=== PATIENT | female | born 1960 | race Caucasian/White ===

== ENCOUNTER 2018-02-12 09:04 | Inpatient (IN) | payer BC ==
[~2018-02-12] VITALS: Ht 157.5 cm; Wt 41.7 kg
[~2018-02-12 09:04] MED LIST: BIOTIN2500 MCG PO; BUPIVACAINE 7.5MG/ML /DEXTROSE 82.5MG/ML 2 ML AMP INJ ONE; CALTRATE PLUS1 EACH PO; COSAMIN ASU CA1 EACH PO; CYCLAFEM1 EAC1 PO; EVENING PRIMRO500 MG PO; MULTI-VITAMIN1 EACH PO; PROBIOTIC ACID1 EACH PO; ROPIVACAINE 246.25 MG, EPINEPHRINE HCL 1:1000 0.5 MG, CLONIDINE HCL 0.08 MG, KETOROLAC ... INJ ONE; SYNTHROID75 MCG PO; TOPROL XL25 MG PO; ZOCOR20 MG PO
[2018-02-12] MEDS ORDERED: DEXAMETHASONE SOD PHOS 10 MG/1 ML VIAL ONE (09:16)
[2018-02-12] MEDS ORDERED: GABAPENTIN 300 MG CAP ONE (09:16)
[2018-02-12] MEDS ORDERED: CELECOXIB 200 MG CAP ONE (09:16)
[2018-02-12] MEDS ORDERED: CEFAZOLIN SOD 2 GM/D5W 50ML 50 ML IV ONE (09:16)
[2018-02-12] MEDS ORDERED: MUPIROCIN 2% OINT 22 GM TUBE ONE (10:28)
[2018-02-12] MEDS ORDERED: TRANEXAMIC ACID 1,000 MG/10 ML ML ONE (10:28)
[2018-02-12] MEDS ORDERED: BACITRACIN 50,000 UNIT VIAL ONE (10:29)
[2018-02-12] MEDS ORDERED: HYDROCODONE/APAP 5MG-325MG TAB PO PRN (12:45)
[2018-02-12] MEDS ORDERED: DOCUSATE SODIUM 100 MG CAP PO PRN (12:45)
[2018-02-12] MEDS ORDERED: KETOROLAC TROMETHAMINE 30 MG/ML VIAL IV PRN (12:45)
[2018-02-12] MEDS ORDERED: HYDROCODONE/APAP 7.5MG-325MG 1 EA TAB PO PRN (12:45)
[2018-02-12] MEDS ORDERED: ONDANSETRON HCL INJ 2 MG/ML VIAL IV PRN (12:45)
[2018-02-12] MEDS ORDERED: ACETAMINOPHEN 650 MG SUPP PR PRN (12:45)
[2018-02-12] MEDS ORDERED: PROMETHAZINE HCL (IM) 25 MG/ML VIAL IM PRN (12:45)
[2018-02-12] MEDS ORDERED: DIPHENHYDRAMINE HCL INJ 50 MG/ML VIAL IM/IV PRN (12:45)
--- NOTE | 2018-02-12 13:04 | Diagnostic Imaging Report ---
PROCEDURE:X-RAY PELVIS, AP VIEW COMPARISON:None. INDICATIONS:STATUS POST LEFT HIP SURGERY FINDINGS: See conclusion CONCLUSION: Post surgical changes related to total left hip are placement with intact and appropriately positioned acetabular cup and femoral stem components. No evidence of hardware loosening or periprosthetic displaced fracture. Adjacent subcutaneous gas compatible with recent surgery. Dictated by: Sukhjinder Blandon M.D. on 02/12/2018 at 13:08 Electronically approved by: Sukhjinder Blandon M.D. on 02/12/2018 at 13:08
[2018-02-12 14:16] VITALS: BP 98/57
[2018-02-12 16:00] VITALS: BP 124/67
[2018-02-12] MEDS ORDERED: CELECOXIB 100 MG CAP PO SCH (17:00)
[2018-02-12] MEDS ORDERED: GLYCOPYRROLATE INJ 1MG/ 5 ML SYR ONE (17:17)
[2018-02-12] MEDS ORDERED: NEOSTIGMINE 5 MG/5ML SYR ONE (17:17)
[2018-02-12] MEDS ORDERED: DEXAMETHASONE SOD PHOS INJ 4 MG/ML VIAL ONE (17:17)
[2018-02-12] MEDS ORDERED: PROPOFOL IV EMULSION 10 MG/ML 20 ML VIAL ONE (17:17)
[2018-02-12] MEDS ORDERED: SEVOFLURANE INHAL SOLN 250 ML PEN BTL ONE (17:17)
[2018-02-12] MEDS ORDERED: KETOROLAC TROMETHAMINE 30 MG/ML VIAL ONE (17:17)
[2018-02-12] MEDS ORDERED: EPHEDRINE SULFATE INJ 50 MG/10 ML SYR ONE (17:17)
[2018-02-12] MEDS ORDERED: ONDANSETRON HCL INJ 2 MG/ML VIAL ONE (17:17)
[2018-02-12] MEDS ORDERED: ROCURONIUM BROMIDE 10 MG/ML 5ML VIAL ONE (17:17)
[2018-02-12] MEDS ORDERED: LIDOCAINE HCL 2% LOCAL INJ 5 ML SDV VIAL INJ ONE (17:17)
[2018-02-12] MEDS ORDERED: MIDAZOLAM HCL 2 MG/2 ML VIAL ONE (17:40)
[2018-02-12] MEDS ORDERED: FENTANYL CITRATE/PF 100MCG/2 ML INJ ONE (17:40)
[2018-02-12] MEDS ORDERED: MORPHINE SULFATE INJ 10 MG/ML ONE (17:40)
[2018-02-12] MEDS: CELECOXIB 200 MG CAP PO SCH (18:00)
[2018-02-12] MEDS: ASPIRIN 325 MG TAB PO SCH (18:00)
[2018-02-12] MEDS: CEFAZOLIN SOD 1 GM/D5W 50ML 50 ML IV SCH (18:00)
[2018-02-12] MEDS: SODIUM CHLORIDE 0.9% 1000ML 1,000 ML IV SCH ×2 (18:00→22:32)
[2018-02-12] MEDS: ACETAMINOPHEN 1000 MG/100 ML IV SCH (18:30)
[2018-02-12 20:00] VITALS: BP 124/67
[2018-02-12] MEDS ORDERED: ZOLPIDEM TARTRATE 5 MG TAB PO PRN (21:00)
[2018-02-13] VITALS: BP 99/57
[2018-02-13] MEDS: ACETAMINOPHEN 1000 MG/100 ML IV SCH ×3 (01:23→11:58)
[2018-02-13] MEDS: CEFAZOLIN SOD 1 GM/D5W 50ML 50 ML IV SCH ×2 (01:49→10:20)
[2018-02-13 04:00] VITALS: BP 97/57
[2018-02-13] MEDS: LEVOTHYROXINE SODIUM 75 MCG TAB PO SCH ×2 (06:12→09:00)
[2018-02-13 07:09] LABS: HEMOGLOBIN 9.7 g/dL (12.0-16.0)
[2018-02-13 08:00] VITALS: BP 94/57
[2018-02-13] MEDS: SODIUM CHLORIDE 0.9% 1000ML 1,000 ML IV SCH (08:32)
[2018-02-13] MEDS ORDERED: [UNRECOGNIZED DRUG - OTHER] PO SCH ×2 (09:00)
[2018-02-13] MEDS ORDERED: OYST-CAL-D 500MG TABLET PO SCH (09:00)
[2018-02-13] MEDS ORDERED: NON-FORMULARY MEDICATION (Biotin 5,000 MCG) PO SCH ×2 (09:00)
[2018-02-13] MEDS ORDERED: NON-FORMULARY MEDICATION (Calcium Carb/Vit D3/Minerals (Caltrate Plus Tablet) 1 TAB) PO SCH (09:00)
[2018-02-13] MEDS ORDERED: METOPROLOL SUCCINATE 25 MG TAB XL PO SCH (09:00)
[2018-02-13] MEDS ORDERED: EVENING PRIMROSE OIL 500 MG PO SCH ×2 (09:00)
[2018-02-13] MEDS ORDERED: LACTOBACILLUS ACIDOPHILUS CAPSULE PO SCH (09:00)
[2018-02-13] MEDS ORDERED: MULTIVITAMINS/MINERALS TAB PO SCH (09:00)
[2018-02-13] MEDS ORDERED: ASPIRIN325 MG PO (09:55)
[2018-02-13 10:07] VITALS: BP 94/57
[2018-02-13] MEDS: CELECOXIB 200 MG CAP PO SCH (10:07)
[2018-02-13] MEDS: ASPIRIN 325 MG TAB PO SCH (10:07)
--- NOTE | 2018-02-13 10:53 | Operative Report ---
DATE OF PROCEDURE: February 12, 2018 HEAD ANIMAL TRAINER: Kuldip Javier PA-C The patient was brought to the operating room for induction of anesthesia. Throughout this case, my PA's assistance was necessary for retraction of soft tissue and positioning of the extremity. This allows for efficient and technically successful execution of the operation and is considered medically necessary. PREOPERATIVE DIAGNOSIS: Osteoarthritis, left hip. POSTOPERATIVE DIAGNOSIS: Osteoarthritis, left hip. PROCEDURE: Left total hip arthroplasty. INDICATIONS: The patient is a 57-year-old lady with severe arthritic changes in her left hip. She has failed conservative management and we plan on a left total hip replacement. The risks and benefits have been discussed. She states she understands and wishes to proceed. DESCRIPTION OF PROCEDURE: The patient was brought to the operating room and placed under general anesthetic. She received prophylactic antibiotics and tranexamic acid in the holding area. She declined a spinal. She was positioned in the right lateral decubitus position. Her left hip was prepped and draped in a sterile manner. A preoperative time out was performed. A mini-incision posterior approach was made to the left hip. Hemostasis was obtained with electrocautery. A Charnley self-retaining retractor was placed. Care was taken to avoid injury to the sciatic nerve. The posterior capsule was exposed. Further hemostasis was obtained with electrocautery. The capsule and short external rotators were released. The hip was dislocated. An oscillating saw was used to resect the femoral head. Complete loss of articular cartilage and flattening of the femoral head was noted. Acetabular retractors were placed. The labrum was already gone. The true floor of the acetabulum was established with a 46-mm reamer. The socket was then sequentially reamed up to 53 mm. A Scar Biomet osseous T 54 mm outer diameter socket was seated. Fixation was augmented with 2 cancellous screws placed into the ilium. A highly cross link polyethylene liner was then seated into place. The hip had been thoroughly irrigated with a shower-tip pulsatile lavage on multiple occasions during this portion of the case. A portion of a 100 mL premixed pericapsular JEANNE injection was placed around the surrounding tissue. The socket was packed with a moistly soaked lap sponge and attention was directed towards the proximal femur. A box cutting osteotome and taper pin reamer were used to establish entry to the femoral canal. The Taperloc broaches were impacted. A #12 stem had good canal fill and rotational stability for trial reductions. A standard 36-mm neck provided appropriate stability and mormonism of limb length. The trial implants were removed. The hip was further irrigated with a shower-tip pulsatile lavage. The actual implants were seated and a final reduction was performed. A standard 36 mm ceramic head was used. The remainder of the JEANNE injection was placed into the soft tissue. The posterior capsule was carefully closed with interrupted #2 Ethibond. The tensor fascia and gluteal fascia were closed with #2 Ethibond. The skin was closed with subcuticular Vicryl, Mastisol and Steri-Strips. A sterile bandage was applied. She was returned to the supine position. She was extubated and transported to the recovery room in stable condition. Blood loss was approximately 50 mL. All needle and sponge counts were correct. Job#: [id number] TONEY
[2018-02-13 12:29] VITALS: BP 100/71
[2018-02-13] MEDS ORDERED: ACETAMINOPHEN 1000 MG/100 ML IV PRN (12:45)
[2018-02-13] MEDS ORDERED: SIMVASTATIN 20 MG TAB PO SCH (21:00)
[2018-02-13] MEDS ORDERED: NORETHINDRONE ETHINYL ESTRAD PO SCH ×2 (21:00)
== END 2018-02-13 14:32 | disposition home health service (06) | DRG 470 ==
LOC: OR 09:04 → PACU V 12:35 → MED/SURG 13:41
PROVIDERS: ADMIT Specialist; ATTEND Specialist
PROC: 0SRB0J9 Replacement of Left Hip Joint with Synthetic Substitute, Cemented, Open Approach (ICD-10-PCS; principal; 2018-02-12 11:14)
DX: M16.12 Unilateral primary osteoarthritis, left hip (principal); Z88.2 Allergy status to sulfonamides; Z88.8 Allergy status to other drugs, medicaments and biological substances; E03.9 Hypothyroidism, unspecified; E78.00 Pure hypercholesterolemia, unspecified; I10 Essential (primary) hypertension; D64.9 Anemia, unspecified
CPT/HCPCS: 36415; 72170; 81025; 85014; 85018; 86850; 86900; 86920; J0171; J1100; J1885; J2001; J2250; J2270; J2405; J2795; J7030

== ENCOUNTER 2018-04-12 09:56 | Outpatient (RCR) | payer BC ==
[~2018-04-12 09:56] MED LIST changes: +ASPIRIN325 MG PO; -BUPIVACAINE 7.5MG/ML /DEXTROSE 82.5MG/ML 2 ML AMP INJ ONE; -ROPIVACAINE 246.25 MG, EPINEPHRINE HCL 1:1000 0.5 MG, CLONIDINE HCL 0.08 MG, KETOROLAC ... INJ ONE
== END 2018-04-13 ==
LOC: PT 09:56
PROVIDERS: ATTEND Specialist
DX: Z96.642 Presence of left artificial hip joint (principal); Z47.1 Aftercare following joint replacement surgery; R26.2 Difficulty in walking, not elsewhere classified; M62.81 Muscle weakness (generalized)

== ENCOUNTER 2018-05-11 08:54 | Outpatient (RCR) | payer BC | END 2018-05-13 | LOC: PT 08:54 | PROVIDERS: ATTEND Specialist | DX: Z96.642 Presence of left artificial hip joint (principal); Z47.1 Aftercare following joint replacement surgery; M62.81 Muscle weakness (generalized); R26.2 Difficulty in walking, not elsewhere classified ==

== ENCOUNTER 2018-06-06 09:01 | Outpatient (RCR) | payer BC | END 2018-06-13 | LOC: PT 09:01 | PROVIDERS: ATTEND Family Medicine | DX: Z96.642 Presence of left artificial hip joint (principal); Z47.1 Aftercare following joint replacement surgery; M62.81 Muscle weakness (generalized); R26.2 Difficulty in walking, not elsewhere classified ==

== ENCOUNTER 2018-06-12 07:58 | Outpatient (RCR) | payer BC | END 2018-06-13 | LOC: PT 07:58 | PROVIDERS: ATTEND Specialist | DX: Z96.642 Presence of left artificial hip joint (principal); Z47.1 Aftercare following joint replacement surgery; M62.81 Muscle weakness (generalized); R26.2 Difficulty in walking, not elsewhere classified ==

== ENCOUNTER 2018-07-03 08:00 | Outpatient (RCR) | payer BC | END 2018-07-13 | LOC: PT 08:00 | PROVIDERS: ATTEND Family Medicine | DX: M94.261 Chondromalacia, right knee (principal); M22.2X1 Patellofemoral disorders, right knee; M25.561 Pain in right knee; M25.661 Stiffness of right knee, not elsewhere classified; M62.81 Muscle weakness (generalized) ==

== ENCOUNTER → 2023-02-10 | Day surgery (SDC) | payer BC, OTHER ==
[~2023-02-10] MED LIST changes: +EPHEDRINE SULFATE INJ 50 MG/ML VIAL ONE; +GLYCOPYRROLATE INJ 0.2 MG/ML VIAL ONE; +LIDOCAINE HCL 2% LOCAL INJ 5 ML SDV VIAL INJ ONE; +METOCLOPRAMIDE HCL 10 MG/2ML VIAL ONE; +MIDAZOLAM HCL 2 MG/2 ML VIAL ONE; +POVIDONE IODINE 0.05% 0.05 % ML PO ONE; +PROPOFOL IV EMULSION 0 ML IV ONE; +PROPOFOL IV EMULSION 10 MG/ML 20 ML VIAL ONE
[2023-02-10 16:20] VITALS: BP 124/84; PULSE 82; RESP 16; O2SAT 98
[2023-02-16 06:13] LABS: ENDOMYSIAL ANTIBODIES, IGA Negative (Negative)
== END | disposition home or self-care (01) ==
LOC: OR 13:05
PROVIDERS: ATTEND Internal Medicine Gastroenterology
DX: K29.50 Unspecified chronic gastritis without bleeding (principal); Z86.010 Personal history of colon polyps; K20.90 Esophagitis, unspecified without bleeding; K63.89 Other specified diseases of intestine; K31.89 Other diseases of stomach and duodenum; K29.60 Other gastritis without bleeding; K59.09 Other constipation; K59.00 Constipation, unspecified; Z71.3 Dietary counseling and surveillance; R63.4 Abnormal weight loss; E78.5 Hyperlipidemia, unspecified; E03.9 Hypothyroidism, unspecified; I44.0 Atrioventricular block, first degree; Z88.3 Allergy status to other anti-infective agents; Z88.2 Allergy status to sulfonamides; Z01.810 Encounter for preprocedural cardiovascular examination; Z79.899 Other long term (current) drug therapy
CPT/HCPCS: 43239; 45380; 82784; 83516; 86256; 93005; C9113; J2001; J2250; J2704; J2765; 45378

== ENCOUNTER 2023-09-08 18:40 | Inpatient (IN) | payer OTHER ==
[2023-09-07 21:30] VITALS: PULSE 81; RESP 16; O2SAT 98
[~2023-09-08] VITALS: Ht 157.5 cm; Wt 34.9 kg
[~2023-09-08 18:40] MED LIST changes: -EPHEDRINE SULFATE INJ 50 MG/ML VIAL ONE; -GLYCOPYRROLATE INJ 0.2 MG/ML VIAL ONE; -LIDOCAINE HCL 2% LOCAL INJ 5 ML SDV VIAL INJ ONE; +LINZESS290 MCG PO; -METOCLOPRAMIDE HCL 10 MG/2ML VIAL ONE; -MIDAZOLAM HCL 2 MG/2 ML VIAL ONE; +NAPROSYN500 MG PO; +ONDANSETRON ODT4 MG PO; +PANTOPRAZOLE SO40 MG PO; -POVIDONE IODINE 0.05% 0.05 % ML PO ONE; -PROPOFOL IV EMULSION 0 ML IV ONE; -PROPOFOL IV EMULSION 10 MG/ML 20 ML VIAL ONE
[2023-09-08 19:14] LABS: BASOPHILS % 0.2 % (0.0-1.0); EOSINOPHILS # (AUTO) 0.1 (0.0-0.4); EOSINOPHILS % 1.7 % (0.0-6.0); HEMATOCRIT 32.5 % (34.2-44.1); HEMOGLOBIN 11.2 g/dL (12.0-16.0); LYMPHOCYTES # (AUTO) 0.4 (1.0-3.2); LYMPHOCYTES % 6.9 % (18.0-39.1); MEAN CORPUSCULAR HEMOGLOBIN 28.6 pg (28-32); MEAN CORPUSCULAR HGB CONC 34.5 g/dL (31-35); MEAN CORPUSCULAR VOLUME 83.1 fL (81-99); MONOCYTES # (AUTO) 0.4 (0.2-0.8); NEUTROPHILS # (AUTO) 4.9 (2.1-6.9); PLATELET COUNT 241 x10e3/uL (140-360); RED BLOOD COUNT 3.91 x10e6/uL (3.6-5.1)
[2023-09-08 19:33] LABS: ALBUMIN 3.6 g/dL (3.5-5.0); ALBUMIN/GLOBULIN RATIO 1.3 (0.8-2.0); ANION GAP 14.9 mmol/L (8-16); BILIRUBIN,TOTAL 0.6 mg/dL (0.2-1.2); CREATININE, SERUM 0.62 mg/dL (0.57-1.11); POTASSIUM 3.9 mmol/L (3.5-5.1); TOTAL PROTEIN 6.3 g/dL (6.5-8.1)
[2023-09-08] MEDS ORDERED: ONDANSETRON HCL INJ 2MG/ML 2ML 2 MG/ML VIAL IV PRN (20:00)
[2023-09-08 21:52] VITALS: BP_SYST 120; BP_SYST 146; BP_DIAS 78; BP_DIAS 79; PULSE 73; RESP 17; TEMP 97.7; O2SAT 100
[2023-09-08] MEDS: SODIUM CHLORIDE 0.9% 1000ML 1,000 ML IV SCH (22:27)
[2023-09-08] MEDS ORDERED: PRAMIPEXOLE D0.25 MG PO (23:12)
[2023-09-08] MEDS ORDERED: TRULANCE3 MG (23:12)
[2023-09-08] MEDS ORDERED: CHLORDIAZEPOXI1 EACH PO (23:12)
[2023-09-09] VITALS (11 sets, daily range): BP systolic 91–142; BP diastolic 56–87; PULSE 66–78; RESP 16–19; TEMP 97.2–98.2; O2SAT 100
[2023-09-09] MEDS ORDERED: ONDANSETRON HCL 4 MG ORAL DISINTEGRATING TAB PO PRN (04:30)
[2023-09-09 06:15] LABS: BASOPHILS % 0.4 % (0.0-1.0); EOSINOPHILS # (AUTO) 0.1 (0.0-0.4); EOSINOPHILS % 2.4 % (0.0-6.0); HEMATOCRIT 30.3 % (34.2-44.1); HEMOGLOBIN 10.4 g/dL (12.0-16.0); LYMPHOCYTES # (AUTO) 0.4 (1.0-3.2); LYMPHOCYTES % 7.9 % (18.0-39.1); MEAN CORPUSCULAR HEMOGLOBIN 27.9 pg (28-32); MEAN CORPUSCULAR HGB CONC 34.3 g/dL (31-35); MEAN CORPUSCULAR VOLUME 81.2 fL (81-99); MONOCYTES # (AUTO) 0.2 (0.2-0.8); MONOCYTES % 4.9 % (4.4-11.3); NEUTROPHILS # (AUTO) 3.9 (2.1-6.9); NEUTROPHILS % 83.8 % (38.7-80.0); PLATELET COUNT 253 x10e3/uL (140-360); RED BLOOD COUNT 3.73 x10e6/uL (3.6-5.1); RED CELL DISTRIBUTION WIDTH 14.1 % (11.7-14.4); WHITE BLOOD COUNT 4.68 x10e3/uL (4.8-10.8)
[2023-09-09 06:39] LABS: ALBUMIN 3.1 g/dL (3.5-5.0); ALBUMIN/GLOBULIN RATIO 1.3 (0.8-2.0); ANION GAP 14.4 mmol/L (8-16); BILIRUBIN,TOTAL 0.5 mg/dL (0.2-1.2); CALCIUM 8.6 mg/dL (8.4-10.2); CREATININE, SERUM 0.53 mg/dL (0.57-1.11); TOTAL PROTEIN 5.4 g/dL (6.5-8.1)
[2023-09-09 07:05] LABS: POTASSIUM 3.4 mmol/L (3.5-5.1)
[2023-09-09 10:27] LABS: ANION GAP 12.2 mmol/L (8-16); CALCIUM 8.6 mg/dL (8.4-10.2); CREATININE, SERUM 0.61 mg/dL (0.57-1.11)
[2023-09-09 10:29] LABS: POTASSIUM 3.2 mmol/L (3.5-5.1)
[2023-09-09] MEDS: LEVOTHYROXINE SODIUM 88 MCG TAB PO SCH (10:40)
[2023-09-09] MEDS: METOPROLOL SUCCINATE 25 MG TAB XL PO SCH (10:41)
[2023-09-09] MEDS: PRAMIPEXOLE DIHYDROCHLORIDE 0.25 MG TAB PO SCH ×2 (10:42→22:05)
[2023-09-09] MEDS: PANTOPRAZOLE SOD 40 MG TABEC PO SCH (10:42)
[2023-09-09] MEDS: HYDROCODONE/APAP 10MG-325MG TAB PO PRN (12:22)
[2023-09-09] MEDS: SODIUM CHLORIDE 0.9% 1000ML 1,000 ML IV SCH (13:40)
[2023-09-09 13:52] LABS: BLOOD UREA NITROGEN 8 mg/dL (7-26); GLUCOSE 72 mg/dL (74-118); OSMOLALITY,SERUM 241 mOsm/kg (278-305); SODIUM 121 mmol/L (136-145)
[2023-09-09 18:56] LABS: ANION GAP 9.6 mmol/L (8-16); CALCIUM 7.9 mg/dL (8.4-10.2); CREATININE, SERUM 0.57 mg/dL (0.57-1.11); POTASSIUM 3.6 mmol/L (3.5-5.1)
[2023-09-09] MEDS: SIMVASTATIN 40 MG TAB PO SCH (20:44)
[2023-09-09 22:41] LABS: ANION GAP 9.7 mmol/L (8-16); CALCIUM 8.1 mg/dL (8.4-10.2); CREATININE, SERUM 0.55 mg/dL (0.57-1.11); POTASSIUM 3.7 mmol/L (3.5-5.1)
[2023-09-10] VITALS (8 sets, daily range): BP systolic 107–146; BP diastolic 68–84; PULSE 57–81; RESP 16–20; TEMP 97.1–98.4; O2SAT 97–100
[2023-09-10 06:06] LABS: BASOPHILS % 0.3 % (0.0-1.0); EOSINOPHILS # (AUTO) 0.1 (0.0-0.4); EOSINOPHILS % 4.4 % (0.0-6.0); HEMATOCRIT 24.8 % (34.2-44.1); HEMOGLOBIN 8.4 g/dL (12.0-16.0); LYMPHOCYTES # (AUTO) 0.3 (1.0-3.2); LYMPHOCYTES % 9.7 % (18.0-39.1); MEAN CORPUSCULAR HEMOGLOBIN 28.4 pg (28-32); MEAN CORPUSCULAR HGB CONC 33.9 g/dL (31-35); MEAN CORPUSCULAR VOLUME 83.8 fL (81-99); MONOCYTES # (AUTO) 0.2 (0.2-0.8); MONOCYTES % 7.5 % (4.4-11.3); NEUTROPHILS # (AUTO) 2.5 (2.1-6.9); NEUTROPHILS % 77.5 % (38.7-80.0); PLATELET COUNT 188 x10e3/uL (140-360); RED BLOOD COUNT 2.96 x10e6/uL (3.6-5.1); RED CELL DISTRIBUTION WIDTH 14.6 % (11.7-14.4); WHITE BLOOD COUNT 3.21 x10e3/uL (4.8-10.8)
[2023-09-10 06:20] LABS: ALBUMIN 2.6 g/dL (3.5-5.0); ALBUMIN/GLOBULIN RATIO 1.5 (0.8-2.0); ANION GAP 9.6 mmol/L (8-16); BILIRUBIN,TOTAL 0.5 mg/dL (0.2-1.2); CREATININE, SERUM 0.54 mg/dL (0.57-1.11); MAGNESIUM 1.7 MG/DL (1.3-2.1); POTASSIUM 3.6 mmol/L (3.5-5.1); TOTAL PROTEIN 4.3 g/dL (6.5-8.1)
[2023-09-10 15:15] LABS: ANION GAP 11.2 mmol/L (8-16); CALCIUM 8.4 mg/dL (8.4-10.2); CREATININE, SERUM 0.57 mg/dL (0.57-1.11); POTASSIUM 4.2 mmol/L (3.5-5.1)
[2023-09-10] MEDS: BISACODYL 5 MG TAB EC PO PRN (18:51)
[2023-09-11] VITALS (7 sets, daily range): BP systolic 104–161; BP diastolic 74–92; PULSE 64–80; RESP 15–18; TEMP 97.4–98.4; O2SAT 96–100
[2023-09-11 08:41] LABS: ANION GAP 11.3 mmol/L (8-16); BLOOD UREA NITROGEN < 5 mg/dL (7-26); CALCIUM 8.6 mg/dL (8.4-10.2); CARBON DIOXIDE 26 mmol/L (22-29); CHLORIDE 96 mmol/L (98-107); CREATININE, SERUM 0.55 mg/dL (0.57-1.11); EST GLOMERULAR FILTRATION RATE 105 ML/MIN (>=60); GLUCOSE 93 mg/dL (74-118); SODIUM 130 mmol/L (136-145)
[2023-09-11 08:43] LABS: BUN/CREATININE RATIO 9 (6-25); POTASSIUM 3.3 mmol/L (3.5-5.1)
[2023-09-11] MEDS: SODIUM CHLORIDE 1 GM TAB PO SCH (09:41)
[2023-09-11 14:53] LABS: ANION GAP 11.6 mmol/L (8-16); CALCIUM 8.5 mg/dL (8.4-10.2); CREATININE, SERUM 0.52 mg/dL (0.57-1.11); POTASSIUM 3.6 mmol/L (3.5-5.1)
[2023-09-12] VITALS (9 sets, daily range): BP systolic 103–139; BP diastolic 57–92; PULSE 75–80; RESP 17–19; TEMP 97–98.7; O2SAT 99–100
[2023-09-12 06:48] LABS: ANION GAP 8.5 mmol/L (8-16); BLOOD UREA NITROGEN < 5 mg/dL (7-26); CALCIUM 8.1 mg/dL (8.4-10.2); CARBON DIOXIDE 29 mmol/L (22-29); CHLORIDE 95 mmol/L (98-107); CREATININE, SERUM 0.52 mg/dL (0.57-1.11); EST GLOMERULAR FILTRATION RATE 106 ML/MIN (>=60); GLUCOSE 74 mg/dL (74-118); POTASSIUM 3.5 mmol/L (3.5-5.1); SODIUM 129 mmol/L (136-145)
[2023-09-12 06:49] LABS: BUN/CREATININE RATIO 10 (6-25)
[2023-09-12] MEDS: CLIDINIUM PO SCH (09:00)
[2023-09-12] MEDS: CHLORDIAZEPOXIDE PO SCH (09:00)
[2023-09-12] MEDS: TRULANCE 3MG PO SCH (09:01)
[2023-09-12] MEDS: SODIUM CHLORIDE 1 GM TAB PO SCH (14:53)
[2023-09-12 15:35] LABS: OSMOLALITY,SERUM OSMOMETER 250 mOsmol/kg (275-295)
[2023-09-12 16:58] LABS: ANION GAP 10.7 mmol/L (8-16); CALCIUM 8.2 mg/dL (8.4-10.2); CREATININE, SERUM 0.51 mg/dL (0.57-1.11); POTASSIUM 3.7 mmol/L (3.5-5.1)
[2023-09-13] VITALS (7 sets, daily range): BP systolic 111–162; BP diastolic 72–90; PULSE 62–86; RESP 16–17; TEMP 97.7–98.1; O2SAT 96–100
[2023-09-13] MEDS: FUROSEMIDE 20 MG TAB PO SCH (09:13)
[2023-09-13 10:26] LABS: ANION GAP 11.2 mmol/L (8-16); CALCIUM 8.5 mg/dL (8.4-10.2); CREATININE, SERUM 0.57 mg/dL (0.57-1.11)
[2023-09-13 10:29] LABS: POTASSIUM 3.2 mmol/L (3.5-5.1)
[2023-09-13 17:48] LABS: ANION GAP 12.5 mmol/L (8-16); CALCIUM 8.2 mg/dL (8.4-10.2); CREATININE, SERUM 0.55 mg/dL (0.57-1.11); POTASSIUM 3.5 mmol/L (3.5-5.1)
[2023-09-14] VITALS (8 sets, daily range): BP systolic 113–152; BP diastolic 77–89; PULSE 75–86; RESP 16–18; TEMP 97.8–98.3; O2SAT 98–100
[2023-09-14 10:03] LABS: ANION GAP 10.6 mmol/L (8-16); CALCIUM 8.9 mg/dL (8.4-10.2); CREATININE, SERUM 0.6 mg/dL (0.57-1.11); POTASSIUM 3.6 mmol/L (3.5-5.1)
[2023-09-14 17:25] LABS: HEMATOCRIT 29.7 % (34.2-44.1); HEMOGLOBIN 9.8 g/dL (12.0-16.0)
[2023-09-15 00:30] VITALS: BP 108/79; PULSE 77; RESP 16; TEMP 97.9; O2SAT 99
[2023-09-15 03:40] VITALS: BP 115/71; PULSE 69; RESP 20; TEMP 98; O2SAT 97
[2023-09-15 06:38] LABS: ALBUMIN 2.8 g/dL (3.5-5.0); ALBUMIN/GLOBULIN RATIO 1.3 (0.8-2.0); ANION GAP 10.6 mmol/L (8-16); BILIRUBIN,TOTAL 0.5 mg/dL (0.2-1.2); CALCIUM 8.3 mg/dL (8.4-10.2); CREATININE, SERUM 0.51 mg/dL (0.57-1.11); POTASSIUM 3.6 mmol/L (3.5-5.1)
[2023-09-15 08:02] VITALS: BP 142/87; PULSE 85; RESP 19; TEMP 98; O2SAT 100
[2023-09-15 12:20] VITALS: BP 120/82; PULSE 75; RESP 16; TEMP 98.4; O2SAT 98
[2023-09-15 15:36] VITALS: BP 121/80; PULSE 70; RESP 18; TEMP 98.2; O2SAT 99
[2023-09-15 20:37] VITALS: BP 133/93; PULSE 84; RESP 18; TEMP 97.6; O2SAT 100
[2023-09-16 00:14] VITALS: BP 107/73; PULSE 75; RESP 18; TEMP 97.8; O2SAT 100
[2023-09-16 07:42] LABS: ALBUMIN 2.6 g/dL (3.5-5.0); ALBUMIN/GLOBULIN RATIO 1.3 (0.8-2.0); ANION GAP 8.4 mmol/L (8-16); BILIRUBIN,TOTAL 0.3 mg/dL (0.2-1.2); CALCIUM 8.2 mg/dL (8.4-10.2); CREATININE, SERUM 0.52 mg/dL (0.57-1.11); TOTAL PROTEIN 4.6 g/dL (6.5-8.1)
[2023-09-16 07:46] LABS: POTASSIUM 3.4 mmol/L (3.5-5.1)
[2023-09-16 08:30] VITALS: BP 121/76; PULSE 76; RESP 18; TEMP 98; O2SAT 100
[2023-09-16 11:29] VITALS: BP 120/80; PULSE 74; RESP 18; TEMP 98.1; O2SAT 100
[2023-09-16 11:30] VITALS: TEMP 98; O2SAT 100
== END 2023-09-16 14:08 | disposition home or self-care (01) | DRG 644 ==
LOC: ER 18:51 → ERHOLD 19:58 → MED/SURG2 21:47
PROVIDERS: ADMIT Family Medicine; ATTEND Family Medicine
DX: E22.2 Syndrome of inappropriate secretion of antidiuretic hormone (principal); E44.0 Moderate protein-calorie malnutrition; R64 Cachexia; Z68.1 Body mass index [BMI] 19.9 or less, adult; M80.08XD Age-related osteoporosis with current pathological fracture, vertebra(e), subsequent encounter for fracture with routine healing; E86.0 Dehydration; D72.819 Decreased white blood cell count, unspecified; K59.00 Constipation, unspecified; K21.9 Gastro-esophageal reflux disease without esophagitis; E78.5 Hyperlipidemia, unspecified; D64.9 Anemia, unspecified; G25.81 Restless legs syndrome; E86.1 Hypovolemia; R53.1 Weakness; Z91.81 History of falling; Z79.890 Hormone replacement therapy; Z79.899 Other long term (current) drug therapy; Z79.1 Long term (current) use of non-steroidal anti-inflammatories (NSAID); Z20.822 Contact with and (suspected) exposure to COVID-19; Y92.89 Other specified places as the place of occurrence of the external cause
CPT/HCPCS: 36415; 80048; 80053; 82947; 83735; 83930; 83935; 84295; 84300; 84520; 85014; 85018; 85025; 94799; 99284; J7030; U0002

== ENCOUNTER 2025-03-21 16:17 | Emergency (ER) | payer OTHER ==
[~2025-03-21] VITALS: Ht 152.4 cm; Wt 29.9 kg
[~2025-03-21 16:17] MED LIST changes: +CHLORDIAZEPOXI1 EACH PO; +COLACE100 M1 PO; +HYDROCODON-ACE1 EA11 PO; +ONDANSETRON ODT4 MG SL; +PRAMIPEXOLE D0.25 MG PO; +PRAMIPEXOLE0.125 MG PO; +TRULANCE3 MG
[2025-03-21 17:27] VITALS: PULSE 83; RESP 16; TEMP 98.4
[2025-03-21] MEDS: TRAMADOL HCL 50 MG TAB PO STA (17:30)
[2025-03-21] MEDS ORDERED: ULTRAM 50MG50 MG PO (17:43)
[2025-03-21 19:36] VITALS: BP 124/78; PULSE 74; RESP 16; O2SAT 100
== END 2025-03-21 19:30 | disposition home or self-care (01) ==
LOC: ER 16:26
DX: M25.562 Pain in left knee (principal); S50.311A Abrasion of right elbow, initial encounter; S90.512A Abrasion, left ankle, initial encounter; W01.0XXA Fall on same level from slipping, tripping and stumbling without subsequent striking against object, initial encounter; Y93.01 Activity, walking, marching and hiking; Y92.481 Parking lot as the place of occurrence of the external cause; I10 Essential (primary) hypertension; E03.9 Hypothyroidism, unspecified; E78.5 Hyperlipidemia, unspecified; K21.9 Gastro-esophageal reflux disease without esophagitis
CPT/HCPCS: 99283